=== PATIENT | female | born 1990 | race American Indian/Alaskan Native ===

== ENCOUNTER 2017-02-06 16:01 | Emergency (ER) | payer SELFPAY ==
[2017-02-06 16:13] VITALS: BP 114/71
[2017-02-06] MEDS: BENADRYL IV ONE (17:09)
[2017-02-06] MEDS: REGLAN IV ONE (17:09)
--- NOTE | 2017-02-06 18:46 | Emergency Department Report ---
Entered by GREGORIO CABRERA, acting as scribe for HASEEB ALICEA NP. ED Headache HPI - General Chief Complaint: Headache Stated Complaint: SEVERE MIGRAINES Time Seen by Provider: 02/06/17 16:32 Source: patient Exam Limitations: no limitations - History of Present Illness Initial Comments: This is a 26 y/o female, nontoxic, well nourished in appearance, no acute signs of distress. with no significant PMHx presents to the ED c/o an intermittent right frontal headache that began 3 days ago. Rates pain a 7/10 in severity, which she describes as throbbing, aching, and pressure in quality. Patient states the headache is gradual in onset. Aggravated by movement light exposure, and alleviated by inactivity and darkness. Denies sinus facial pain, fever, chills, chest pain, SOB, cough, wheezing, nausea, vomiting, stiff neck, vision changes, abnormal gait, numbness, and weakness. Denies any head injury/trauma. Reports that she usually gets a headache during or around her menstrual period and stress. Notes that her PCP diagnosed her with tension headaches due to her anger management and stress. Patient's boyfriend, Priyank Calderón, is currently in the room, and he states that he will drive patient home from the ED. Took Tylenol with temporary relief. LMP 02/01/2017. Allergic to Ibuprofen. Timing/Duration: other (3 days) Quality: moderate (7/10) Head Injury Location: frontal (right frontal) Recent Head Trauma: no recent headache/trauma, frequent headaches Modifying Factors: improves with: immobilization, other (darkness). worse with : exposure to light, movement Associated Symptoms: denies symptoms. denies: confusion, fatigue, facial pain, fever/chills, flushing, loss of consciousness, nausea/vomiting, nasal congestion , nasal drainage, numbness in legs/feet, rash, seizures, sinus infection, stiff neck, vision changes, weakness Allergies/Adverse Reactions: Allergies ibuprofen Allergy (Verified 02/06/17 16:05) Hives Home Medications: Ambulatory Orders Acetaminophen [Acetaminophen TAB] 650 mg PO Q6HR PRN #15 tablet 02/06/17 ED Review of Systems Constitutional: no symptoms reported. denies: chills, fever, weakness Eyes: denies: eye pain, eye discharge, vision change ENT: denies: ear pain, throat pain Respiratory: denies: cough, shortness of breath, wheezing Cardiovascular: denies: chest pain, palpitations Endocrine: no symptoms reported Gastrointestinal: denies: abdominal pain, nausea, diarrhea Genitourinary: denies: urgency, dysuria, discharge Musculoskeletal: denies: back pain, joint swelling, arthralgia, other (facial pain) Skin: denies: rash, lesions Neurological: headache (right frontal). denies: weakness, numbness, paresthesias, confusion, abnormal gait, vertigo Psychiatric: denies: anxiety, depression Hematological/Lymphatic: denies: easy bleeding, easy bruising ED Past Medical Hx - Past Medical History Previous Medical History?: No Additional medical history: bronchitis - Surgical History Additional Surgical History: TUBES IN EARS. BLADDER SURGERY ([facility]) - Social History Smoking Status: Never Smoker Substance Use Type: None - Medications Home Medications: Home Medications Medication Instructions Recorded Confirmed Last Taken Type Acetaminophen [Acetaminophen TAB] 650 mg PO Q6HR PRN #15 tablet 02/06/17 Unknown Rx ED Physical Exam - General Limitations: No Limitations General appearance: alert, in no apparent distress - Head Head exam: Present: atraumatic, normocephalic, normal inspection - Eye Eye exam: Present: normal appearance, PERRL, EOMI. Absent: scleral icterus, conjunctival injection, nystagmus, periorbital swelling, periorbital tenderness Pupils: Present: normal accommodation - ENT ENT exam: Present: normal exam, normal orophraynx, mucous membranes moist, TM's normal bilaterally, normal external ear exam - Neck Neck exam: Present: normal inspection, full ROM. Absent: tenderness, meningismus, lymphadenopathy - Respiratory Respiratory exam: Present: normal lung sounds bilaterally. Absent: respiratory distress, wheezes, rales, rhonchi, stridor, chest wall tenderness, accessory muscle use, decreased breath sounds, prolonged expiratory - Cardiovascular Cardiovascular Exam: Present: regular rate, normal rhythm, normal heart sounds. Absent: bradycardia, tachycardia, irregular rhythm, systolic murmur, diastolic murmur, rubs, gallop - GI/Abdominal GI/Abdominal exam: Present: soft, normal bowel sounds. Absent: distended, tenderness, guarding, rebound, rigid, diminished bowel sounds, hyperactive bowel sounds, hypoactive bowel sounds - Extremities Exam Extremities exam: Present: normal inspection, full ROM, normal capillary refill. Absent: tenderness, pedal edema, joint swelling, calf tenderness - Back Exam Back exam: Present: normal inspection, full ROM. Absent: tenderness, CVA tenderness (R), CVA tenderness (L), muscle spasm, paraspinal tenderness, vertebral tenderness, rash noted - Neurological Exam Neurological exam: Present: alert, oriented X3, CN II-XII intact, normal gait, reflexes normal. Absent: motor sensory deficit - Expanded Neurological Exam Expanded Neurological exam: Absent: innattentive, tremor Patient oriented to: Present: person, place, time Speech: Present: fluid speech (normal tone of speech) Cranial nerves: EOM's Intact: Normal, Gag Reflex: Normal, Tongue Deviation: Normal, Nystagmus: Normal, Facial Sensation: Normal, Facial Palsy with Forehead Movement: Normal, Facial Palsy without Forehead Movement: Normal Cerebellar function: Finger to Nose: Normal, Heel to Loving: Normal, Romberg: Normal Upper motor neuron: Christiano Neglect: Normal, Pronator Drift: Normal, Babinski Sign : Normal, Sensory Extinction: Normal Sensory exam: Upper Extremity Light Touch: Normal, Upper Extremity Pin Prick: Normal, Upper Extremity Temperature: Normal, UE 2 Point Discrimination: Normal, Lower Extremity Light Touch: Normal, Lower Extremity Pin Prick: Normal, Lower Extremity Temperature: Normal, LE 2 Point Discrimination: Normal Motor strength exam: RUE: 5, LUE: 5, RLE: 5, LLE: 5 DTR: bicep (R): 2+, bicep (L): 2+, tricep (R): 2+, tricep (L): 2+, knee (R): 2+ , knee (L): 2+, ankle (R): 2+, ankle (L): 2+ Best Eye Response ([place]): (4) open spontaneously Best Motor Response ([place]): (6) obeys commands Best Verbal Response ([place]): (5) oriented [place] Total: 15 - Psychiatric Psychiatric exam: Present: normal affect, normal mood - Skin Skin exam: Present: warm, dry, intact. Absent: rash ED Course Vital Signs 02/06/17 02/06/17 16:09 17:26 Temperature 99.0 F 98.1 F Pulse Rate 86 Respiratory 17 Rate Blood Pressure 114/71 O2 Sat by Pulse 100 Oximetry - Reevaluation(s) Reevaluation #1: 02/06/17 17:30 Patient is resting comfortably with no signs of distress. Boyfriend is correctly at bedside. Reevaluation #2: 02/06/17 17:34 Patient stated feels much better and stated headache has subsided after medical treatment in the ED. Rates headache as 0/10 currently. ED Medical Decision Making - Medical Decision Making Ed course: This is a 26-year-old female that presents with intermittent headache x3 days 1- after my physical exam, patient received Reglan and Benadryl IV. Pt was instructed not to operate heavy machinery after discharged his sedation/ drowsiness. 2- patient received acetaminophen 650 mg by mouth at time of discharge and was instructed to follow-up with her primary care doctor in 3-5 days or if symptoms worsen such as as it is, nausea, vomiting, severe thunderclap headache, chest pain or shortness of breath, report back to emergency room as soon as possible. 3- at time time of discharge, the patient does not seem toxic or ill in appearance. No acute signs of distress noted. Patient agrees to discharge treatment plan of care. No further questions noted by the patient. ED Disposition Clinical Impression: Headache Disposition: DC-01 TO HOME OR SELFCARE Is pt being admited?: No Does the pt Need Aspirin: No Condition: Stable Instructions: Acetaminophen (By mouth), Acute Headache (ED) Additional Instructions: Follow-up with your primary care doctor in 3-5 days or if symptoms worsen such as SOB, nausea, vomiting, severe thunderclap headache, chest pain or shortness of breath, report back to emergency room as soon as possible. Take acetaminophen as prescribed as needed for headaches. Prescriptions: Acetaminophen [Acetaminophen TAB] 650 mg PO Q6HR PRN #15 tablet PRN Reason: Pain Referrals: PRIMARY CARE, [Primary Care Provider] - 3-5 Days CORDELIA MCQUEEN JR, MD [Staff Physician] - 3-5 Days LISA MCLEOD MD [Staff Physician] - 3-5 Days [facility] [Outside] - 3-5 Days [facility] [Outside] - 3-5 Days Forms: Work/School Release Form(ED) This documentation as recorded by the RICK aguiar JASMINE,accurately reflects the service I personally performed and the decisions made by ,HASEEB ALICEA, WIRE WELDER.
== END 2017-02-06 18:49 | disposition home or self-care (01) ==
LOC: ED 16:01
DX: R51 Headache (principal)
CPT/HCPCS: 96374; 96375; 99282; J1200; J2765